=== PATIENT | male | born 2000 | race Caucasian/White ===

== ENCOUNTER 2019-05-10 15:27 | Emergency (ER) | payer SELFPAY ==
--- NOTE | 2019-05-10 15:49 | NUR ---
called No response
--- NOTE | 2019-05-10 15:51 | NUR ---
called No response. Ana Luisa
== END 2019-05-10 15:52 | disposition home or self-care (01) ==
LOC: ER 15:27
DX: Z53.21 Procedure and treatment not carried out due to patient leaving prior to being seen by health care provider (principal)